=== PATIENT | male | born 1960 | race Asian ===

== ENCOUNTER 2023-09-06 11:57 | Emergency (ER) | payer MEDICAID ==
[~2023-09-06] VITALS: Ht 170.2 cm; Wt 84.0 kg
[2023-09-06 12:00] VITALS: TEMP 97.9
[2023-09-06] MEDS ORDERED: ROSU10TA72 PO (12:04)
[2023-09-06] MEDS ORDERED: SITA1TBM4 PO (12:04)
[2023-09-06] MEDS ORDERED: FENO145T26 PO (13:25)
[2023-09-06] MEDS ORDERED: METF-446 PO (13:25)
[2023-09-06] MEDS ORDERED: SITA25 PO (13:25)
[2023-09-06] MEDS ORDERED: LOSA-382 PO (13:25)
[2023-09-06] MEDS ORDERED: HYDR12.56 PO (13:25)
[2023-09-06] MEDS: KETOROLAC TROMETHAMINE 60 MG/2 ML VIAL IM ONE (14:07)
[2023-09-06] MEDS: LIDOCAINE 5% TRANSDERMAL PATCH TD ONE (14:26)
[2023-09-06] MEDS: METHOCARBAMOL 500 MG TABLET PO ONE (14:26)
[2023-09-06] MEDS ORDERED: IBUP-1492 PO (14:37)
[2023-09-06] MEDS ORDERED: METH-659 PO (14:37)
[2023-09-06 15:06] VITALS: BP 141/88; PULSE 89; RESP 16
== END 2023-09-06 15:10 | disposition home or self-care (01) ==
LOC: EMS 12:23
DX: M25.512 Pain in left shoulder (principal); E11.9 Type 2 diabetes mellitus without complications; E78.00 Pure hypercholesterolemia, unspecified
CPT/HCPCS: 99283; 82962; 73030; 96372; J1885